=== PATIENT | female | born 1985 | race Caucasian/White ===

== ENCOUNTER 2021-02-25 13:18 | Emergency (ER) | payer OTHER ==
[~2021-02-25 13:18] MED LIST: AZITHROMYCIN250 MG PO; FENOFIBRATE40 MG PO; FLEXERIL10 MG PO; NORCO 5-325 TA1 EACH PO; PRINIVIL20 MG PO; RITALIN10 MG PO
[2021-02-25 14:04] LABS: BASOPHIL 0.4 % (0-2); EOSINOPHIL 1.4 % (0-5); HCT 38.5 % (37.0-47.0); HGB 12.7 g/dl (12.5-16.0); MCH 27.9 pg (25.0-31.0); MCV 84.4 fL (78.0-100.0); MONOCYTE 9.7 % (0-12); MPV 10.1 fL (6.0-9.5); NEUTROPHIL 64.9 % (41-80); NRBC 0; PLT 366 K/uL (150-400); RBC 4.56 M/uL (4.20-5.40); RDW 14.6 % (11.5-14.0); WBC 7.8 K/uL (4.0-10.5)
[2021-02-25 14:28] LABS: ALBUMIN 4.1 g/dL (3.4-5.0); BILIRUBIN - TOTAL 0.2 mg/dL (0.2-1.0); BUN/CREAT RATIO (CALC) 20.5 RATIO; CREATININE 0.78 mg/dL (0.51-0.95); GLOBULIN (CALCULATION) 3.5 g/dL; POTASSIUM 4.6 mmol/L (3.5-5.1); TOTAL PROTEIN 7.6 g/dL (6.4-8.2)
[2021-02-25 14:35] LABS: LACTIC ACID 1.3 mmol/L (0.4-1.9)
[2021-02-25 14:58] LABS: BILIRUBIN NEGATIVE (NEGATIVE); BLOOD NEGATIVE Ery/uL (NEGATIVE); CLARITY CLEAR (CLEAR); COLOR YELLOW (YELLOW); GLUCOSE (U) NORMAL (NORMAL); LEUKOCYTES NEGATIVE Leu/uL (NEGATIVE); NITRITE NEGATIVE (NEGATIVE); PROTEIN NEGATIVE (NEGATIVE); UROBILINOGEN 0.2 mg/dL (0.2-1.0); pH 5.5 (5.0-9.0)
[2021-02-25 15:04] LABS: HCG (URINE) SCREEN NEGATIVE (NEGATIVE)
[2021-02-25 15:05] LABS: AMPHETAMINES NEGATIVE (NEGATIVE); BARBITURATES NEGATIVE (NEGATIVE); ECSTASY (MDMA) NEGATIVE (NEGATIVE); MARIJUANA (THC) NEGATIVE (NEGATIVE); METHADONE NEGATIVE (NEGATIVE); OPIATES NEGATIVE (NEGATIVE); OXYCODONE NEGATIVE (NEGATIVE)
[2021-02-25] MEDS ORDERED: CARAFATE1 GM PO (17:48)
[2021-02-25] MEDS ORDERED: ZOFRAN4 M1 PO (17:48)
[2021-02-25] MEDS ORDERED: PRILOSEC20 MG PO (17:48)
[2021-02-25] MEDS ORDERED: KEFLEX250 MG PO ×2 (18:24→18:45)
== END 2021-02-25 18:40 | disposition home or self-care (01) ==
LOC: FER 13:18
PROVIDERS: Emergency Medicine; Nurse Practitioner
DX: R07.89 Other chest pain (principal); L03.115 Cellulitis of right lower limb; R06.02 Shortness of breath; I10 Essential (primary) hypertension; Z87.891 Personal history of nicotine dependence; Z88.6 Allergy status to analgesic agent; Z88.2 Allergy status to sulfonamides; Z88.5 Allergy status to narcotic agent; Z91.040 Latex allergy status; Z79.899 Other long term (current) drug therapy
CPT/HCPCS: 36415; 71046; 80053; 80305; 81003; 82150; 83605; 84145; 84484; 84703; 85025; 85379; 87040; 93005; 93971; J2405; J7030; Q0169